=== PATIENT | female | born 1995 | race Caucasian/White ===

== ENCOUNTER 2022-01-31 09:55 | Emergency (ER) | payer OTHER ==
[2022-01-31 10:04] VITALS: BP 122/62; PULSE 76; RESP 18; TEMP 98.1; BMI 27.4
[2022-01-31] MEDS ORDERED: SODIUM CHLORIDE 1,000 ML IV STA (11:04)
[2022-01-31] MEDS ORDERED: ACETAMINOPHEN 1000 MG/100 ML BAG IVPB ONE (11:05)
[2022-01-31] MEDS ORDERED: ACETAMINOPHEN INJECTION 100 ML IVPB ONE (11:07)
[2022-01-31 11:35] LABS: BASO % 0.9 % (0-2.0); EOS % 0.8 % (0-4.5); HEMATOCRIT 38.6 % (32.4-45.2); HEMOGLOBIN 13.1 GM/dL (10.7-15.3); LYMPH % 24.7 % (8-40); MCH 30.9 pg (25.7-33.7); MCHC 33.9 g/dl (32.0-36.0); MEAN CELL VOLUME 91.2 fl (80-96); MEAN PLT VOLUME 9.4 fl (7.5-11.1); MONO % 5.6 % (3.8-10.2); PLATELET COUNT 294 10^3/uL (134-434); RBC 4.24 M/mm3 (3.60-5.2); RDW 12.4 % (11.6-15.6); WHITE BLOOD COUNT 9.2 K/mm3 (4.0-10.0)
[2022-01-31 11:36] LABS: EPI CELLS >36 /uL (0-25.1); HCG,QUALITATIVE URINE Positive; HYALINE CASTS 3 /uL (0-3.1); PH,URINE 5.5 (5.0-8.0); URINE APPEARANCE CLOUDY; URINE BACTERIA 4507 /uL (0-1359); URINE BILIRUBIN NEGATIVE (NEGATIVE); URINE COLOR YELLOW; URINE GLUCOSE (UA) NEGATIVE (NEGATIVE); URINE KETONE TRACE (NEGATIVE); URINE LEUK ESTERASE TRACE (NEGATIVE); URINE NITRITE NEGATIVE (NEGATIVE); URINE PROTEIN NEGATIVE (NEGATIVE); URINE UROBILINOGEN 0.2 mg/dL (0.2-1.0); URINE WBC 42 /uL (0-25.8)
[2022-01-31 11:39] LABS: INR 1.21 (0.83-1.09)
[2022-01-31 11:55] LABS: ALBUMIN 3.7 g/dl (3.4-5.0); BLOOD UREA NITROGEN 9.2 mg/dL (7-18); CALCIUM 9.7 mg/dL (8.5-10.1)
[2022-01-31 11:58] LABS: CREATININE 0.5 mg/dL (0.55-1.3)
[2022-01-31 12:00] LABS: TOT PROT 7.2 g/dl (6.4-8.2)
[2022-01-31 12:05] LABS: BILIRUBIN,TOTAL 0.4 mg/dL (0.2-1)
[2022-01-31 12:22] LABS: URINE RBC 65.5 /uL (0-23.9)
[2022-01-31 12:33] LABS: YEAST RARE (NEGATIVE)
[2022-01-31 16:14] LABS: URINE CRYSTALS FEW /hpf
== END 2022-01-31 14:05 | disposition home or self-care (01) ==
LOC: JER 09:55
PROC: 3E033GC Introduction of Other Therapeutic Substance into Peripheral Vein, Percutaneous Approach (ICD-10-PCS; principal; 2022-01-31)
DX: O20.9 Hemorrhage in early pregnancy, unspecified (principal); Z3A.01 Less than 8 weeks gestation of pregnancy
CPT/HCPCS: 36415; 76801-TC; 80053; 81003; 84702; 84703; 85025; 85610; 85730; 86850; 86900; 86901; 87086; 99284-25

== ENCOUNTER 2022-02-19 11:08 | Emergency (ER) | payer OTHER ==
[2022-02-19 11:14] VITALS: BP 127/70; PULSE 93; RESP 16; TEMP 98.2; BMI 27.4
[2022-02-19] MEDS ORDERED: ACETAMINOPHEN 500 MG TABLET (FP) PO ONE ×2 (12:21→12:27)
[2022-02-19] MEDS ORDERED: SODIUM CHLORIDE 0.9% 500 ML INFUS.BAG IV ONE (12:26)
[2022-02-19] MEDS ORDERED: METOCLOPRAMIDE HCL INJECTION 10 MG/2 ML VIAL IVPB ONE (12:26)
[2022-02-19] MEDS ORDERED: KETOROLAC TROMETHAMINE 15 MG/ML VIAL IVPUSH ONE (12:27)
[2022-02-19] MEDS ORDERED: ACETAMINOPHEN 325 MG TABLET (FP) PO ONE (12:34)
[2022-02-19] MEDS ORDERED: ACETAMINOPHEN 325 MG TABLET (FP) ONE (12:39)
== END 2022-02-19 13:50 | disposition home or self-care (01) ==
LOC: JERFT 11:08
DX: O26.891 Other specified pregnancy related conditions, first trimester (principal); R51.9 Headache, unspecified; Z3A.09 9 weeks gestation of pregnancy
CPT/HCPCS: 0241U-QW; 99283-25

== ENCOUNTER 2022-03-08 11:55 | Emergency (ER) | payer OTHER ==
[2022-03-08 12:39] VITALS: BP 103/68; PULSE 89; RESP 20; TEMP 98.1; BMI 27.4
[2022-03-08 13:50] LABS: BASO % 1.2 % (0-2.0); EOS % 3.3 % (0-4.5); HEMATOCRIT 39.2 % (32.4-45.2); LYMPH % 19.7 % (8-40); MCH 30.3 pg (25.7-33.7); MCHC 33.2 g/dl (32.0-36.0); MEAN CELL VOLUME 91.1 fl (80-96); MEAN PLT VOLUME 9.7 fl (7.5-11.1); MONO % 4.8 % (3.8-10.2); PLATELET COUNT 281 10^3/uL (134-434); RDW 12.8 % (11.6-15.6); WHITE BLOOD COUNT 9.6 K/mm3 (4.0-10.0)
[2022-03-08 14:01] LABS: BLOOD UREA NITROGEN 8.2 mg/dL (7-18); CALCIUM 9.4 mg/dL (8.5-10.1); EPI CELLS >36 /uL (0-25.1); HYALINE CASTS 1 /uL (0-3.1); URINE APPEARANCE CLEAR; URINE BACTERIA 1214 /uL (0-1359); URINE BILIRUBIN NEGATIVE (NEGATIVE); URINE COLOR YELLOW; URINE GLUCOSE (UA) NEGATIVE (NEGATIVE); URINE KETONE 1+ (NEGATIVE); URINE LEUK ESTERASE TRACE (NEGATIVE); URINE NITRITE NEGATIVE (NEGATIVE); URINE PROTEIN NEGATIVE (NEGATIVE); URINE RBC 30 /uL (0-23.9); URINE UROBILINOGEN 0.2 mg/dL (0.2-1.0); URINE WBC 10 /uL (0-25.8)
[2022-03-08 14:03] LABS: HCG,QUALITATIVE URINE POSITIVE
[2022-03-08 14:05] LABS: CREATININE 0.5 mg/dL (0.55-1.3)
== END 2022-03-08 14:28 | disposition home or self-care (01) ==
LOC: JERFT 11:55
DX: O23.41 Unspecified infection of urinary tract in pregnancy, first trimester (principal); Z3A.12 12 weeks gestation of pregnancy
CPT/HCPCS: 36415; 80048; 81003; 84702; 84703; 85025; 86850; 86900; 86901; 87070; 87086; 87205; 87491; 87591; 87661; 99283-25

== ENCOUNTER 2022-03-19 14:53 | Emergency (ER) | payer OTHER ==
[2022-03-19 15:10] VITALS: BP 109/60; PULSE 125; RESP 16; TEMP 98.9; BMI 27.4
[2022-03-19] MEDS ORDERED: ACETAMINOPHEN 1000 MG/100 ML BAG IVPB ONE (16:34)
[2022-03-19] MEDS ORDERED: SODIUM CHLORIDE 0.9% 500 ML INFUS.BAG IV ONE ×2 (16:34→18:27)
[2022-03-19] MEDS ORDERED: ACETAMINOPHEN INJECTION 100 ML IVPB ONE (17:06)
[2022-03-19 18:04] LABS: THROAT:GRP A STREP NOT DETECTED (NOTDETECTED)
[2022-03-19 18:27] LABS: EOS % 0.1 % (0-4.5); HEMATOCRIT 37.4 % (32.4-45.2); HEMOGLOBIN 12.5 GM/dL (10.7-15.3); LYMPH % 14.7 % (8-40); MCH 30.6 pg (25.7-33.7); MCHC 33.5 g/dl (32.0-36.0); MEAN CELL VOLUME 91.3 fl (80-96); MEAN PLT VOLUME 10.1 fl (7.5-11.1); MONO % 7.4 % (3.8-10.2); NEUT % 76.8 % (42.8-82.8); PLATELET COUNT 212 10^3/uL (134-434); RBC 4.09 M/mm3 (3.60-5.2); RDW 12.9 % (11.6-15.6)
[2022-03-19 18:44] LABS: CALCIUM 8.5 mg/dL (8.5-10.1)
[2022-03-19 18:45] LABS: ALBUMIN 3.4 g/dl (3.4-5.0); BLOOD UREA NITROGEN 4.1 mg/dL (7-18)
[2022-03-19 18:48] LABS: CREATININE 0.5 mg/dL (0.55-1.3)
[2022-03-19 18:50] LABS: BILIRUBIN,TOTAL 0.2 mg/dL (0.2-1); TOT PROT 7.1 g/dl (6.4-8.2)
== END 2022-03-19 20:24 | disposition home or self-care (01) ==
LOC: JER 14:53
PROC: 3E033GC Introduction of Other Therapeutic Substance into Peripheral Vein, Percutaneous Approach (ICD-10-PCS; principal; 2022-03-19)
DX: O99.512 Diseases of the respiratory system complicating pregnancy, second trimester (principal); J09.X2 Influenza due to identified novel influenza A virus with other respiratory manifestations; Z3A.14 14 weeks gestation of pregnancy
CPT/HCPCS: 0241U-QW; 36415; 80053; 85025; 87651; 99284-25